=== PATIENT | female | born 1975 | race Caucasian/White ===

== ENCOUNTER 2018-05-23 05:33 | Emergency (ER) | payer OTHER ==
[2018-05-23 06:16] VITALS: BMI 42.4
[2018-05-23] MEDS ORDERED: ALBUTEROL SO4 2.5/IPRATROPIUM 0.5 INH SOL 3 ML VIAL.NEB. NEB ONE ×2 (06:34→06:47)
[2018-05-23] MEDS: ALBUTEROL SO4 2.5/IPRATROPIUM 0.5 INH SOL 3 ML VIAL.NEB. NEB SCH ×3 (06:37→07:05)
--- NOTE | 2018-05-23 06:50 | PDOC ---
History of Present Illness - General Chief Complaint: Cold Symptoms Stated Complaint: CONGESTION,DIZZINESS Time Seen by Provider: 05/23/18 06:11 History Source: Patient Exam Limitations: No Limitations - History of Present Illness Initial Comments: 05/23/18 06:29 43 YOF with h/o GERD, IDDM, HTN, HLD and obesity presenting with URI sx x 1 week. started with allergies when she returned from [facility] 1 week ago, followed by clear nasal congestion, cough, post nasal drip, chest tightness and dyspnea worse with the coughing episodes. no other sick contacts or travel. no f /c, n/v, leg swelling or pain, brennan or dizziness. went to urgent care x 2 this week, rx'd bromefed and zyrtec with minimal relief and stop taking. had neg flu test. LMP 05/11/18, denies . 05/23/18 06:55 05/23/18 07:01 Past History - Past Medical History Allergies/Adverse Reactions: Allergies Allergy/AdvReac Type Severity Reaction Status Date / Time No Known Allergies Allergy Verified 05/23/18 06:09 Home Medications: Ambulatory Orders Amlodipine Besylate [Norvasc -] 5 mg PO DAILY 12/28/12 Insulin NPL/Insulin Lispro [Humalog Mix 75-25 Pen] 100 unit SQ DAILY 12/28/12 Loratadine [Claritin -] 10 mg PO DAILY #30 tablet 12/28/12 Mometasone Furoate [Nasonex] 1 - 2 inh NS DAILY #1 spray.inh 12/28/12 Telmisartan/Hydrochlorothiazid [Micardis Hct 40-12.5 mg Tablet] 1 each PO DAILY 12/28/12 Albuterol Sulfate Inhaler - [Ventolin HFA Inhaler -] 1 - 2 inh PO Q4H PRN #1 inhaler 05/23/18 Cardiac Disorders: Yes Diabetes: Yes HTN: Yes - Immunization History Immunization Up to Date: No - Suicide/Smoking/Psychosocial Hx Smoking Status: No Smoking History: Never smoked Have you smoked in the past 12 months: No Number of Cigarettes Smoked Daily: 0 Information on smoking cessation initiated: No Hx Alcohol Use: No Drug/Substance Use Hx: No Review of Systems - Review of Systems Able to Perform ROS?: Yes Comments:: 05/23/18 06:50 Constitutional: no fevers or chills. +weakness. HEENT: no headache or dizziness. + congestion. No visual/hearing disturbances. + post nasal drip. CVS: +chest tightness. Resp: +cough, congestion, sob Abdomen: no abdominal pain, nausea or vomiting. Genitourinary: no urinary sx, hematuria. MUSCULOSKELETAL: No joint pain and swelling. No neck or back pain. SKIN: no redness or skin changes, no discharge, no rash. No wounds. Hematologic: no easy bruising/bleeding. NEUROLOGIC: No headache, dizziness, LOC or altered mental status. No weakness, numbness or tingling. All other systems reviewed and negative, or as documented in HPI. *Physical Exam - Vital Signs Last Vital Signs Temp Pulse Resp BP Pulse Ox 98.2 F 89 18 135/82 99 05/23/18 05:35 05/23/18 05:35 05/23/18 05:35 05/23/18 05:35 05/23/18 05:35 - Physical Exam Comments: 05/23/18 06:51 General: Well appearing, awake and alert, NAD. HEENT: NCAT, PERRL, EOMI, clear conjunctiva, anicteric, moist mucus membranes, clear oropharynx, no oral lesions.. +sinuses tender to percussion over maxillary region Neck: neck supple, FROM Resp: CTAB, normal and even respirations, no respiratory distress CVS: RRR, no murmurs, 2+ peripheral pulses throughout, no peripheral edema Abdomen: soft, NTND Back: nontender, normal inspection and ROM MSK: no edema, GUPTA x4, ROM intact. No clubbing or cyanosis. normal bulk and tone. Extrem: no calf tenderness Neuro: alert, oriented appropriately; no focal neurologic deficits Skin: warm and well perfused, cap refill <2 sec, normal color ED Treatment Course - RADIOLOGY Radiology Studies Ordered: Category Date Time Status CHEST PA & LAT [RAD] Stat Radiology 05/23/18 06:26 Ordered Medical Decision Making - Medical Decision Making 05/23/18 06:52 43 YOF with URI sx x 1 week. no f/c or systemic sx. vitals wnl no fever, normal spO2, no respiratory distress. DDx. URI, pneumonia, viral syndrome, pleurisy, sinusitis, pharyngitis. doubt PE or ACS as more likely infectious etiology exam unremarkable, airway intact, normal phonation. lungs clear plan for cxr and ekg, r/o arrhythmia or ischemia. check for pna, but more likely viral etiology with sx. cxr clear, ekg sinus rhythm. hydration encouraged, duonebs x2, here with clinical improvement and breathing more comfortable. then given albuterol inhaler q4-6 hr as needed for cough and congestion. no steroids minimize triggers and allergens, salt gargles, warm humidifier. may also take otc sudafed for decongestants. pcp followup. defer abx as more likely viral etiology. 05/23/18 07:02 05/23/18 07:02 05/24/18 05:58 *DC/Admit/Observation/Transfer Diagnosis at time of Disposition: URI (upper respiratory infection) - Discharge Dispostion Disposition: HOME Condition at time of disposition: Good Decision to Admit order: No - Prescriptions Prescriptions: Albuterol Sulfate Inhaler - [Ventolin HFA Inhaler -] 1 - 2 inh PO Q4H PRN #1 inhaler PRN Reason: Cough - Referrals Referrals: Tim Teran MD [Primary Care Provider] - - Patient Instructions Printed Discharge Instructions: DI for Sinusitis, DI for Viral Upper Respiratory Infection -- Adult, DI for Nasal Congestion Additional Instructions: you were evaluated in the department for upper respiratory infection stay well hydrated. may use salt water gargles and warm humidifier. albuterol inhaler every 4-6 hour as needed for cough and shortness of breath with your congestion avoid triggers and environmental allergens follow up with your primary doctor. - Post Discharge Activity Forms/Work/School Notes: Back to Work
[2018-05-23 09:13] VITALS: BP 133/72; PULSE 86; TEMP 98.1
--- NOTE | 2018-05-23 16:14 | EKG ---
Test Reason : Blood Pressure : / mmHG Vent. Rate : 098 BPM Atrial Rate : 098 BPM P-R Int : 124 ms QRS Dur : 086 ms QT Int : 366 ms P-R-T Axes : 034 -22 028 degrees QTc Int : 467 ms NORMAL SINUS RHYTHM MINIMAL VOLTAGE CRITERIA FOR LVH, MAY BE NORMAL VARIANT CANNOT RULE OUT ANTERIOR INFARCT , AGE UNDETERMINED ABNORMAL ECG WHEN COMPARED WITH ECG OF 26-SEP-2009 20:50, NO SIGNIFICANT CHANGE WAS FOUND Confirmed by MD CHERISE, FORREST ([id number]) on 05/23/2018 4:13:53 PM Referred By: Confirmed By:FORREST LUONG MD
== END 2018-05-23 09:13 | disposition home or self-care (01) ==
LOC: JER 05:33
DX: J06.9 Acute upper respiratory infection, unspecified (principal); I10 Essential (primary) hypertension; E11.9 Type 2 diabetes mellitus without complications; Z97.4 Presence of external hearing-aid; E78.5 Hyperlipidemia, unspecified; Z68.41 Body mass index [BMI] 40.0-44.9, adult
CPT/HCPCS: 71046-TC-FY; 93005; 93010; 99282-25

== ENCOUNTER 2019-03-04 18:50 | Emergency (ER) | payer OTHER ==
[2019-03-04 19:00] VITALS: BP 180/94; PULSE 98; TEMP 98.5; BMI 39.6
[2019-03-04 19:54] LABS: PH,URINE 6.5 (5.0-8.0); URINE APPEARANCE CLEAR; URINE BILIRUBIN NEGATIVE (NEGATIVE); URINE COLOR YELLOW; URINE GLUCOSE (UA) NEGATIVE (NEGATIVE); URINE KETONE NEGATIVE (NEGATIVE); URINE LEUK ESTERASE NEGATIVE (NEGATIVE); URINE NITRITE NEGATIVE (NEGATIVE); URINE PROTEIN NEGATIVE (NEGATIVE); URINE UROBILINOGEN 0.2 mg/dL (0.2-1.0)
--- NOTE | 2019-03-04 20:01 | PDOC ---
History of Present Illness - General Chief Complaint: Urinary Problem Stated Complaint: URINARY PROBLEM Time Seen by Provider: 03/04/19 19:26 History Source: Patient - History of Present Illness Timing/Duration: reports: getting worse Past History - Past Medical History Allergies/Adverse Reactions: Allergies Allergy/AdvReac Type Severity Reaction Status Date / Time No Known Allergies Allergy Verified 05/23/18 06:09 Home Medications: Ambulatory Orders Amlodipine Besylate [Norvasc -] 5 mg PO DAILY 12/28/12 Insulin NPL/Insulin Lispro [Humalog Mix 75-25 Pen] 100 unit SQ DAILY 12/28/12 Loratadine [Claritin -] 10 mg PO DAILY #30 tablet 12/28/12 Mometasone Furoate [Nasonex] 1 - 2 inh NS DAILY #1 spray.inh 12/28/12 Telmisartan/Hydrochlorothiazid [Micardis Hct 40-12.5 mg Tablet] 1 each PO DAILY 12/28/12 Albuterol Sulfate Inhaler - [Ventolin HFA Inhaler -] 1 - 2 inh PO Q4H PRN #1 inhaler 05/23/18 Phenazopyridine HCl [Pyridium] 100 mg PO TID #6 tablet 03/04/19 Cardiac Disorders: Yes COPD: No Diabetes: Yes HTN: Yes - Immunization History Immunization Up to Date: No - Suicide/Smoking/Psychosocial Hx Smoking Status: No Smoking History: Never smoked Have you smoked in the past 12 months: No Number of Cigarettes Smoked Daily: 0 Hx Alcohol Use: No Drug/Substance Use Hx: No Substance Use Type: None Review of Systems - Review of Systems Constitutional: No: Chills, Fever ABD/GI: No: Nausea, Vomiting : Yes: Burning. No: Discharge, Flank Pain, Hematuria *Physical Exam - Vital Signs Last Vital Signs Temp Pulse Resp BP Pulse Ox 98.5 F 98 H 18 180/94 H 100 03/04/19 18:57 03/04/19 18:57 03/04/19 18:57 03/04/19 18:57 03/04/19 18:57 - Physical Exam General Appearance: Yes: Appropriately Dressed. No: Apparent Distress HEENT: positive: Normal Voice Neck: positive: Supple Respiratory/Chest: negative: Respiratory Distress Gastrointestinal/Abdominal: positive: Soft. negative: Tender Musculoskeletal: negative: CVA Tenderness Integumentary: positive: Dry, Warm Neurologic: positive: Fully Oriented, Alert, Normal Mood/Affect Medical Decision Making - Medical Decision Making 03/04/19 19:56 43 yo morbidly obesed female, IDDM, here w/ dysuria and freq. Currently on macrobid and has since taken 2 doses (last dose last night). States her PMD called yesterday telling her to stop abx as her ucx was negative. Pt states sxs were getting better w/ meds but since stopped taking meds, sxs are worse. No hematuria, flank pain, n/v/f/c. Pt well kam w/ unremarkable exam. UA neg here. Pt instructed to resume abx given sxs. Pyridum added. Now reports that she has an appt for pelvic US tomorrow and will f/u *DC/Admit/Observation/Transfer Diagnosis at time of Disposition: Dysuria - Discharge Dispostion Disposition: HOME Condition at time of disposition: Good - Prescriptions Prescriptions: Phenazopyridine HCl [Pyridium] 100 mg PO TID #6 tablet - Referrals Referrals: Tim Teran MD [Primary Care Provider] - - Patient Instructions Printed Discharge Instructions: Urinary Tract Infection Additional Instructions: Based on your symptoms, resume macrobid and take pyridium as directed Please follow up with your PMD tomorrow as already scheduled - Post Discharge Activity
== END 2019-03-04 20:00 | disposition home or self-care (01) ==
LOC: JERFT 18:50
DX: R30.0 Dysuria (principal); I10 Essential (primary) hypertension; E11.9 Type 2 diabetes mellitus without complications; Z79.4 Long term (current) use of insulin; E66.01 Morbid (severe) obesity due to excess calories; Z68.39 Body mass index [BMI] 39.0-39.9, adult
CPT/HCPCS: 81003; 87086; 99282-25

== ENCOUNTER 2019-06-26 13:00 | Emergency (ER) | payer OTHER ==
[2019-06-26 13:18] VITALS: TEMP 98.4; BMI 39.6
--- NOTE | 2019-06-26 14:02 | PDOC ---
History of Present Illness - General Chief Complaint: Shortness of Breath Stated Complaint: COUGH Time Seen by Provider: 06/26/19 13:22 - History of Present Illness Initial Comments: 06/26/19 12:45 44 yo F PMH GERD, IDDM, HTN, HLD and obesity, p/w generalized fatigue. Patient reports that she was diagnosed as flu positive 9 days ago and completed a 5 day course of Tamiflu. She initially began to feel better, but then for the last 2 days, she has developed generalized fatigue and congestion, albeit without a fever. Further reports that she has not been eating or drinking very much for the past 2 days. Coming in today because she felt extremely weak yesterday night, to the point that she was too tired to respond when her called her. Weather was too rough to go to ER until today. Feels improved from last night. Specifically denies CP, SOB, abd pain, [place], N/V, constipation/diarrhea. Past History - Past Medical History Allergies/Adverse Reactions: Allergies Allergy/AdvReac Type Severity Reaction Status Date / Time No Known Allergies Allergy Verified 06/26/19 13:10 Home Medications: Ambulatory Orders Amlodipine Besylate [Norvasc -] 5 mg PO DAILY 12/28/12 Albuterol Sulfate Inhaler - [Ventolin HFA Inhaler -] 1 - 2 inh PO QID #1 inhaler 06/26/19 Fluticasone Propionate [Flovent Hfa] 110 mcg IH BID #1 inh 06/26/19 Cardiac Disorders: Yes COPD: No Diabetes: Yes HTN: Yes - Immunization History Immunization Up to Date: No - Psycho Social/Smoking Cessation Hx Smoking Status: No Smoking History: Never smoked Have you smoked in the past 12 months: No Number of Cigarettes Smoked Daily: 0 Hx Alcohol Use: No Drug/Substance Use Hx: No Substance Use Type: None Review of Systems - Review of Systems Comments:: 06/26/19 15:06 GENERAL/CONSTITUTIONAL: No fever or chills. Generalized weakness and fatigue. HEAD, EYES, EARS, NOSE AND THROAT: No change in vision. No ear pain or discharge. No sore throat. Significant congestion. CARDIOVASCULAR: No chest pain or shortness of breath. RESPIRATORY: Unproductive cough. No wheezing or hemoptysis. GASTROINTESTINAL: No nausea, vomiting, diarrhea or constipation. GENITOURINARY: No dysuria, frequency, or change in urination. MUSCULOSKELETAL: Generalized myalgias. No neck or back pain. SKIN: No rash NEUROLOGIC: No headache, vertigo, loss of consciousness, or change in strength/ sensation. ENDOCRINE: No increased thirst. No abnormal weight change. HEMATOLOGIC/LYMPHATIC: No anemia, easy bleeding, or history of blood clots. ALLERGIC/IMMUNOLOGIC: No hives or skin allergy *Physical Exam - Vital Signs Last Vital Signs Temp Pulse Resp BP Pulse Ox 98.4 F 91 H 24 H 170/107 H 99 06/26/19 13:16 06/26/19 13:16 06/26/19 13:16 06/26/19 13:16 06/26/19 13:16 - Physical Exam 06/26/19 15:08 Gen: well-developed, well-nourished, appears uncomfortable Neuro: AAOX4, CN II-XII intact, FTN intact, EOMI, PERRLA, 5/5 strength, SILT HEENT: atraumatic, normocephalic, dry mucous membranes Neck: trachea midline, supple CV: regular rate, regular rhythm, no murmurs, rubs, or gallops Pulm: CTA b/l, no wheezing Abd: soft, non-distended, non-tender MSK: full ROM, intact pulses Extr: no edema, no deformities Skin: warm, dry ED Treatment Course - LABORATORY CBC & Chemistry Diagram: 06/26/19 14:53 06/26/19 14:53 Medical Decision Making - Medical Decision Making 06/26/19 15:10 Concern for dehydration v viral syndrome v bronchitis. - Chest PA + L - CBC, CMP - EKG - Duoneb - reassess - most likely dc for further outpatient workup 06/26/19 15:13 EKG sinus at 92 bpm, LVH, no signs of ischemic changes. 06/26/19 15:52 Labs unremarkable, will f/u CXR. Likely dc home afterwards. 06/26/19 16:08 CXR without acute pathology, will dc. Discharge - Discharge Information Problems reviewed: Yes Clinical Impression/Diagnosis: Viral syndrome Condition: Improved Disposition: HOME - Admission No - Additional Discharge Information Prescriptions: Albuterol Sulfate Inhaler - [Ventolin HFA Inhaler -] 1 - 2 inh PO QID #1 inhaler Fluticasone Propionate [Flovent Hfa] 110 mcg IH BID #1 inh - Follow up/Referral Referrals: Tim Teran MD [Primary Care Provider] - - Patient Discharge Instructions Patient Printed Discharge Instructions: DI for Viral Syndrome Additional Instructions: You were seen with congestion and generalized fatigue with a recent flu infection. This is most likely to be a viral syndrome. Please drink lots of fluids. Take your Flovent twice a day and your albuterol inhaler up to 4 times a day as needed. Follow up with your primary care doctor within one week. Return to the ED if you develop worsening symptoms. - Post Discharge Activity
[2019-06-26] MEDS ORDERED: ALBUTEROL SO4 2.5/IPRATROPIUM 0.5 INH SOL 3 ML VIAL.NEB. NEB ONE ×2 (14:04→14:35)
[2019-06-26 15:08] LABS: BASO % 0.3 % (0-2.0); EOS % 1.3 % (0-4.5); HEMOGLOBIN 11.6 GM/dL (10.7-15.3); LYMPH % 27.9 % (8-40); MCH 23.5 pg (25.7-33.7); MCHC 32.3 g/dl (32.0-36.0); MEAN CELL VOLUME 72.7 fl (80-96); MEAN PLT VOLUME 9.7 fl (7.5-11.1); MONO % 6.1 % (3.8-10.2); NEUT % 64.4 % (42.8-82.8); PLATELET COUNT 218 K/MM3 (134-434); RBC 4.96 M/mm3 (3.60-5.2); RDW 17.8 % (11.6-15.6); WHITE BLOOD COUNT 8.6 K/mm3 (4.0-10.0)
[2019-06-26] MEDS ORDERED: amLODIPine BESYLATE 5 MG TABLET (FP) PO ONE (15:35)
[2019-06-26] MEDS ORDERED: amLODIPine BESYLATE 5 MG TABLET (FP) ONE (15:39)
[2019-06-26 15:40] LABS: ALBUMIN 3.4 g/dl (3.4-5.0); BILIRUBIN,TOTAL 0.7 mg/dL (0.2-1); BLOOD UREA NITROGEN 6.4 mg/dL (7-18); CALCIUM 8.9 mg/dL (8.5-10.1); CREATININE 0.7 mg/dL (0.55-1.3); POTASSIUM 3.6 mmol/L (3.5-5.1); TOT PROT 7.6 g/dl (6.4-8.2)
--- NOTE | 2019-06-26 15:48 | PDOC ---
Attending Attestation - Resident Resident Name: Lupe Montiel - ED Attending Attestation I have performed the following: I have examined & evaluated the patient, The case was reviewed & discussed with the resident, I agree w/resident's findings & plan - HPI HPI: 06/26/19 15:43 44-year-old female with history of hypertension and diabetes recently diagnosed with influenza A 9d ago s/p tamiflu course presents now with 2 days of chest congestion and wheezing with slight cough, no shortness of breath or chest pain , normal O2 sat measured at home as patient is typically monitoring her vital signs as a diabetic. No new fevers or chills, no leg swelling, presents for evaluation to rule out superimposed pneumonia. - Physicial Exam PE: 06/26/19 15:47 Afebrile, O2 sat normal, blood pressure elevated in the setting of medication noncompliance for several days Well-appearing seated comfortably in chair speaking full sentences Oropharynx clear, neck supple Heart is regular Lungs are clear without focally decreased breath sounds, prolonged expiration, or wheezing. Distant expiratory wheezing with cough, otherwise clear. Good air entry and symmetric. Abdomen benign No edema - Medical Decision Making 06/26/19 15:48 44-year-old female with hypertension and diabetes presents with chest congestion after recently diagnosed influenza. Rule out postinfectious cardiopulmonary process, seems most consistent with post viral bronchitis/ reactive airway, which the patient has had in the past. Lower suspicion for cardiomyopathy or ARDS, patient is well-appearing and not in acute respiratory distress. Blood pressure is elevated but this is expected in the setting of medication noncompliance, no symptoms or signs of endorgan injury. Check labs, EKG, chest x-ray Dose of amlodipine Reassess, if above is within normal limits and patient feels better after albuterol, can discharge on nebs and inhaled steroids. Patient cannot take systemic steroids as she has gone into DKA in the past on even short courses of prednisone. Heart Score/ECG Review #1 ECG reviewed & interpreted by me at: 15:01 General ECG Interpretation: Sinus Rhythm, Normal Rate (92), Normal Intervals ( qtc 472, LVH), No acute ischemic changes
[2019-06-26 16:41] VITALS: BP 135/91; PULSE 88
--- NOTE | 2019-06-27 09:59 | EKG ---
Test Reason : Blood Pressure : / mmHG Vent. Rate : 092 BPM Atrial Rate : 092 BPM P-R Int : 128 ms QRS Dur : 078 ms QT Int : 382 ms P-R-T Axes : 024 -19 003 degrees QTc Int : 472 ms POOR DATA QUALITY, INTERPRETATION MAY BE ADVERSELY AFFECTED NORMAL SINUS RHYTHM POSSIBLE LEFT ATRIAL ENLARGEMENT LEFT VENTRICULAR HYPERTROPHY ABNORMAL ECG WHEN COMPARED WITH ECG OF 23-MAY-2018 07:15, NO SIGNIFICANT CHANGE WAS FOUND Confirmed by IAIN CHAU MD ([id number]) on 06/27/2019 9:58:54 AM Referred By: Confirmed By:IAIN CHAU MD
== END 2019-06-26 16:40 | disposition home or self-care (01) ==
LOC: JER 13:00
PROC: 3E0F7GC Introduction of Other Therapeutic Substance into Respiratory Tract, Via Natural or Artificial Opening (ICD-10-PCS; principal; 2019-06-26)
DX: B34.9 Viral infection, unspecified (principal)
CPT/HCPCS: 36415; 71046-TC-FY; 80053; 84443; 85025; 93005; 93010; 99283-25